=== PATIENT | male | born 1975 | race Two or more races ===

== ENCOUNTER 2018-12-20 17:21 | Inpatient (IN) | payer MEDICARE, OTHER ==
[~2018-12-20] VITALS: Ht 162.6 cm; Wt 59.0 kg
--- NOTE | 2018-12-20 17:28 | NUR ---
PT IS IN ROOM #2A. DR YOUNG EVALUATED THE PT. SEIZURES PRECAUTIONS WERE IMPLEMENTED. PT IS RESTING IN BED COMFORTABLY. CONTINUE TO MONITOR THE PT.
[2018-12-20] MEDS ORDERED: [UNRECOGNIZED DRUG - REMARK] (17:30)
[2018-12-20 18:06] LABS: BASOPHILS # (AUTO) 0.1 K/uL (0.0-8.0); BASOPHILS % (AUTO) 1.1 % (0.0-2.0); EOSINOPHILS # (AUTO) 0.2 K/uL (0.0-0.7); EOSINOPHILS % (AUTO) 2.7 % (0.0-7.0); HEMATOCRIT 39.3 % (36.7-47.1); LYMPHOCYTES # (AUTO) 2.4 K/uL (20.0-40.0); MEAN CORPUSCULAR HEMOGLOBIN 29.6 uug (23.8-33.4); MEAN CORPUSCULAR HGB CONC 33 g/dL (32.5-36.3); MEAN CORPUSCULAR VOLUME 89.4 fL (73.0-96.2); MONOCYTES # (AUTO) 0.7 K/uL (2.0-10.0); MONOCYTES % (AUTO) 8.9 % (0.0-11.0); NEUTROPHILS # (AUTO) 4.5 K/uL (1.8-8.9); NEUTROPHILS % (AUTO) 57.3 % (38.5-71.5); PLATELET COUNT (AUTO) 317 K/uL (152-348); WHITE BLOOD COUNT (AUTO) 7.9 K/uL (3.6-10.2)
[2018-12-20 18:07] LABS: CREATININE 0.8 mg/dL (0.6-1.3); POTASSIUM 3.6 mmol/L (3.5-5.1)
[2018-12-20 18:12] LABS: BILIRUBIN,DIRECT 0.1 mg/dL (0.0-0.2); BILIRUBIN,TOTAL 0.3 mg/dL (0.2-1.0); TOTAL PROTEIN, SERUM 7.4 g/dL (6.4-8.2)
[2018-12-20] MEDS ORDERED: LACO150T2 GT (19:02)
[2018-12-20] MEDS ORDERED: LEVE1000 GT (19:02)
[2018-12-20] MEDS ORDERED: LAMO25TA10 GT (19:02)
[2018-12-20] MEDS ORDERED: LORAZEPAM 2 MG/1 ML VIAL ONE (19:15)
[2018-12-20] MEDS ORDERED: LORAZEPAM 2 MG/1 ML VIAL IV ONE (19:15)
--- NOTE | 2018-12-20 19:23 | NUR ---
Recieved report from [place] IBARRA, assumed care of pt.,
--- NOTE | 2018-12-20 19:41 | NUR ---
Gave report to Carter
--- NOTE | 2018-12-20 20:32 | NUR ---
Belongings list compiled, MRSA swab culture collected and taken to lab,
--- NOTE | 2018-12-20 21:01 | NUR ---
Pt. taken off unit via stretcher by Portia IBARRA to admit to 312, IV intact - no s/s infiltration/phlebitis, NAD
[2018-12-20 21:27] VITALS: BP 101/80
[2018-12-20] MEDS ORDERED: ONDANSETRON 4 MG/2 ML VIAL IV PRN (21:30)
[2018-12-20] MEDS ORDERED: ACETAMINOPHEN 650 MG/20.3 ML LIQUID UDC GT PRN (21:30)
[2018-12-20] MEDS ORDERED: LORAZEPAM 2 MG/1 ML VIAL IV PRN (21:30)
[2018-12-21 00:24] VITALS: BP 125/80
[2018-12-21 05:57] VITALS: BP 119/75
[2018-12-21 05:59] LABS: BASOPHILS # (AUTO) 0.1 K/uL (0.0-8.0); EOSINOPHILS # (AUTO) 0.2 K/uL (0.0-0.7); EOSINOPHILS % (AUTO) 2.6 % (0.0-7.0); HEMATOCRIT 39.7 % (36.7-47.1); LYMPHOCYTES % (AUTO) 21.7 % (20.5-51.5); MEAN CORPUSCULAR HEMOGLOBIN 29.6 uug (23.8-33.4); MEAN CORPUSCULAR HGB CONC 33 g/dL (32.5-36.3); MONOCYTES # (AUTO) 0.8 K/uL (2.0-10.0); MONOCYTES % (AUTO) 8.9 % (0.0-11.0); NEUTROPHILS % (AUTO) 65.8 % (38.5-71.5); PLATELET COUNT (AUTO) 323 K/uL (152-348); RED BLOOD CELL COUNT(AUTO) 4.41 MIL/uL (4.06-5.63); WHITE BLOOD COUNT (AUTO) 9.2 K/uL (3.6-10.2)
[2018-12-21 06:19] LABS: BILIRUBIN,TOTAL 0.2 mg/dL (0.2-1.0); CREATININE 0.9 mg/dL (0.6-1.3); MAGNESIUM 2.1 mg/dL (1.8-2.4); PHOSPHOROUS 2.6 mg/dL (2.5-4.9); POTASSIUM 4.2 mmol/L (3.5-5.1); TOTAL PROTEIN, SERUM 7.2 g/dL (6.4-8.2)
[2018-12-21 06:20] LABS: THYROID STIMULATING HORMONE 1.876 mIU/mL (0.358-3.740)
--- NOTE | 2018-12-21 06:48 | NUR ---
Admitted to room 312; seizure precaution observed; fall precaution observed; needs attended; no seizure observed overnight; continue to monitor; continue plan of care.
--- NOTE | 2018-12-21 08:00 | NUR ---
Seizure precaution implemented. Pt wearing helmet for his seizure. IV patent. Pt is in no acute distress. Skin intact. Call light is within reach.
[2018-12-21] MEDS: LAMOTRIGINE 25 MG TABLET GT SCH ×2 (08:39→17:04)
[2018-12-21] MEDS: LEVETIRACETAM 500 MG/5 ML LIQUID UDC GT SCH ×2 (08:39→20:56)
[2018-12-21] MEDS: PANTOPRAZOLE SODIUM 40 MG VIAL IV SCH (08:39)
[2018-12-21] MEDS ORDERED: LACOSAMIDE 100 MG/10 ML UDC GT SCH (09:00)
[2018-12-21 10:59] VITALS: BP 122/56
[2018-12-21 15:03] VITALS: BP 108/75
[2018-12-21] MEDS: NICOTINE 21 MG/24HR PATCH TD SCH (15:32)
--- NOTE | 2018-12-21 16:00 | NUR ---
Got phone number of pt's brother CHEY from social media strategist. Message left to Pts brother CHEY and [phone] to get information regarding questionable 3rd seizure meds is still unknown. Awaiting call back
[2018-12-21] MEDS: LACOSAMIDE 50 MG TABLET PO SCH (20:56)
--- NOTE | 2018-12-21 21:30 | NUR ---
Received patient awake, alert and oriented. Tolerated meds. No signs of acute distress at this time. IV patent. Seizure precautions implemented. Bed in lowest and locked position. Call light within reach. Will continue to monitor throughout shift.
[2018-12-21 21:43] VITALS: BP 119/79
[2018-12-22 00:21] VITALS: BP 119/78
[2018-12-22 05:16] VITALS: BP 114/78
--- NOTE | 2018-12-22 06:38 | NUR ---
Patient slept throughout night. VSS. No seizure observed overnight. Continue plan of care, continue to monitor.
--- NOTE | 2018-12-22 08:00 | NUR ---
Seizure precaution implemented. Pt agreeable on wearing his helmet. IV patent. Call light is within reach.
[2018-12-22] MEDS: LEVETIRACETAM 500 MG/5 ML LIQUID UDC GT SCH ×2 (08:52→20:17)
[2018-12-22] MEDS: LACOSAMIDE 50 MG TABLET PO SCH ×2 (08:52→20:17)
[2018-12-22] MEDS: LAMOTRIGINE 25 MG TABLET GT SCH ×2 (08:52→16:54)
[2018-12-22] MEDS: NICOTINE 21 MG/24HR PATCH TD SCH (08:52)
[2018-12-22] MEDS: PANTOPRAZOLE SODIUM 40 MG VIAL IV SCH (08:56)
[2018-12-22 11:07] VITALS: BP 108/74
[2018-12-22 15:27] VITALS: BP 98/66
--- NOTE | 2018-12-22 18:30 | NUR ---
No seizure noted this shift. Pt took medications as ordered. No SOB noted. Call light is within reach.
[2018-12-22 19:52] VITALS: BP 115/78
--- NOTE | 2018-12-22 20:00 | NUR ---
Patient awake and alert. Tolerated meds. IV infiltrated. New IV inserted on right forearm. PRN morphine given for right leg and left thigh pain at 9/10. Bed in lowest and locked position. Call light within reach. Will continue to monitor throughout shift.
[2018-12-22] MEDS: MORPHINE SULFATE 2 MG/1 ML DISP.SYRIN IV PRN (20:22)
--- NOTE | 2018-12-22 21:00 | NUR ---
Patient resting comfortably in bed. No complaints of pain at this time.
[2018-12-23 05:35] VITALS: BP 104/60
--- NOTE | 2018-12-23 06:30 | NUR ---
No seizure noted this shift. Patient slept intermittently throughout night. Continue plan of care: seizure precautions and pain management. No acute distress noted. Call light within reach.
[2018-12-23] MEDS ORDERED: PANTOPRAZOLE SODIUM 40 MG TABLET.DR PO SCH (07:00)
[2018-12-23] MEDS: LACOSAMIDE 50 MG TABLET PO SCH ×2 (09:23→20:27)
[2018-12-23] MEDS: LEVETIRACETAM 500 MG/5 ML LIQUID UDC GT SCH ×2 (09:23→20:27)
[2018-12-23] MEDS: NICOTINE 21 MG/24HR PATCH TD SCH (09:23)
[2018-12-23] MEDS: LAMOTRIGINE 25 MG TABLET GT SCH ×2 (09:24→16:37)
--- NOTE | 2018-12-23 09:43 | NUR ---
Received pt. on bed, comfortable in no distress. A/OX3 and able to make his needs known. Denies CP or SOB. All due medications administered as ordered and tolerated well. No seizure noted, on keppra. G-tube present, patent and intact. RFA PIV remain patent and intact with no s/sx of IV complication .All pt. need attended promptly. Safety measures in place. Upper SR 2x up with padding. Call light and all frequently used items within pt. reach.
[2018-12-23 11:33] VITALS: BP 113/72
[2018-12-23] MEDS ORDERED: LACO50TA2 PO (12:42)
[2018-12-23 14:58] VITALS: BP 101/72
--- NOTE | 2018-12-23 18:35 | NUR ---
End of shift note: All due medications administered as ordered and tolerated well. No sign of acute distress or SOB was noted. Kept pt clean and dry throughout this shift. CT of head completed, awaiting for results. Safety measures maintained. All needs attended and met promptly. Bed in low position, brake and alarm on, side rails up x2 as an enabler. Seizure precaution in place. Call light and all frequently used items within pt. reach. Will endorse to next shift accordingly.
[2018-12-23 19:20] VITALS: BP 139/76
--- NOTE | 2018-12-23 19:20 | NUR ---
RECEIVED PATIENT LYING IN BED. AAOX4. IN NO ACUTE DISTRESS. DENIES ANY PAIN OR SOB. HELMET IN PLACE. SEIZURE PRECAUTION OBSERVED. IV SITE ON RIGHT FA INTACT AND PATENT. NEEDS ASSESSED AND ATTENDED TO. SAFETY MEASURE INITIATED AND CALL CASTRO WITHIN REACH.
--- NOTE | 2018-12-23 19:46 | NUR ---
TELEPHOE CALL TO X-RAY DEPARTMENT/HIREN TO FOLLOW UP ON CT HEAD RESULT, NOT BEING READ YET, STATED HE WILL FOLLOW UP NOW.
[2018-12-23] MEDS: MORPHINE SULFATE 2 MG/1 ML DISP.SYRIN IV PRN (20:32)
--- NOTE | 2018-12-23 21:40 | NUR ---
Informed Jen Jimenez regarding CT Head result and Tony RN COMPLIANCE cleared patient for discharge tonight. Telephone call to patient brother Boy who will be picking up the patient tonight. Boy to call this nurse back for ETA.
[2018-12-23 23:10] VITALS: BP 137/74
--- NOTE | 2018-12-23 23:20 | NUR ---
PATIENT AAOX4. IN NO ACUTE DISTRESS. VS WNL. DISCONTINUED IV SITE NAD REMOVE NAME TAG. PICKED UP BY PATIENT BROTHER CHEY VIA PRIVATE CAR.
--- NOTE | 2018-12-28 23:30 | NUR ---
12/21/2018 2030 Patient complained of left thigh and right leg pain at level of 8-9/10. Administered PRN Morphine.
== END 2018-12-23 23:20 | disposition home or self-care (01) | DRG 101 ==
LOC: ER 17:23 → DOU 20:43 → TELE-TD3 21:17 → TELE3 21:27 → MEDSURG3 12-22 17:25
PROVIDERS: ADMIT Internal Medicine; ATTEND Hospitalist
DX: G40.919 Epilepsy, unspecified, intractable, without status epilepticus (principal); I62.9 Nontraumatic intracranial hemorrhage, unspecified; T76.11XA Adult physical abuse, suspected, initial encounter; G93.49 Other encephalopathy; S06.9X0S Unspecified intracranial injury without loss of consciousness, sequela; Y09 Assault by unspecified means; G93.89 Other specified disorders of brain; I67.9 Cerebrovascular disease, unspecified; R41.89 Other symptoms and signs involving cognitive functions and awareness; F17.210 Nicotine dependence, cigarettes, uncomplicated; Z93.1 Gastrostomy status; Z87.81 Personal history of (healed) traumatic fracture; D32.0 Benign neoplasm of cerebral meninges
CPT/HCPCS: 36415; 70450; 71045; 73501; 83690; 83735; 84100; 84443; 85025; 93005; A4663; C9113; G0378; J2060; J2270; J2405